=== PATIENT | female | born 2005 | race Caucasian/White ===

== ENCOUNTER 2024-05-10 17:40 | Emergency (ER) | payer MEDICAID ==
[~2024-05-10] VITALS: Ht 162.6 cm; Wt 71.7 kg
[~2024-05-10 17:40] MED LIST: AZIT200S47 PO; AZIT250T PO; CIPR7.5D2 RIGHT EAR; CLAR250S PO; IBUP-2766 PO
[2024-05-10 18:10] LABS: STREP A SCREEN POSITIVE (Neg)
[2024-05-10] MEDS ORDERED: LIDO20SO16 PO (18:34)
[2024-05-10] MEDS ORDERED: CLIN-233 PO (18:34)
[2024-05-10 18:53] VITALS: BP 116/76; PULSE 107; RESP 16; TEMP 99; O2SAT 98
[2024-05-10] MEDS ORDERED: CLIN300C54 PO (18:53)
== END 2024-05-10 18:54 | disposition home or self-care (01) ==
LOC: ER 17:40
DX: J02.0 Streptococcal pharyngitis (principal); Z88.0 Allergy status to penicillin; Z79.2 Long term (current) use of antibiotics; Z79.1 Long term (current) use of non-steroidal anti-inflammatories (NSAID)
CPT/HCPCS: 87880; 99283

== ENCOUNTER 2024-07-03 19:20 | Emergency (ER) | payer MEDICAID ==
[~2024-07-03] VITALS: Ht 162.6 cm; Wt 70.0 kg
[~2024-07-03 19:20] MED LIST changes: +CLIN-233 PO; +LIDO20SO16 PO
[2024-07-03 19:26] VITALS: TEMP 98
[2024-07-03 20:32] VITALS: BP 124/86; PULSE 99; RESP 18; O2SAT 98
== END 2024-07-03 20:34 | disposition home or self-care (01) ==
LOC: ER 19:20
DX: M79.641 Pain in right hand (principal); M25.531 Pain in right wrist; Z88.0 Allergy status to penicillin; Z79.2 Long term (current) use of antibiotics; Z79.1 Long term (current) use of non-steroidal anti-inflammatories (NSAID); Z79.899 Other long term (current) drug therapy
CPT/HCPCS: 29125; 73130; 99283

== ENCOUNTER 2024-07-09 00:05 | Emergency (ER) | payer MEDICAID ==
[~2024-07-09] VITALS: Ht 162.6 cm; Wt 69.7 kg
[2024-07-09 00:30] VITALS: BP 127/91; PULSE 99; RESP 14; TEMP 98.6; O2SAT 100
[2024-07-09 01:17] LABS: BASOPHILS % (AUTO) 0.4 % (0-1); EOSINOPHILS # (AUTO) 0.1 X10'3 (0-0.9); HEMATOCRIT 40.9 % (35.0-45.0); LYMPHOCYTES # (AUTO) 2.9 X10'3 (1.1-4.8); MEAN CORPUSCULAR HEMOGLOBIN 30.2 PG (27.0-31.0); MEAN CORPUSCULAR HGB CONC 34.1 g/dL (33.0-36.5); MEAN CORPUSCULAR VOLUME 88.5 FL (78-98); MEAN PLATELET VOLUME 9.2 FL (7.4-10.4); MONOCYTES # (AUTO) 0.6 X10'3 (0-0.9); MONOCYTES % (AUTO) 6.5 % (2-12); NEUTROPHILS # (AUTO) 5.1 X10'3 (1.8-7.7); NEUTROPHILS % (AUTO) 59.1 % (42-75); PLATELET COUNT 278 X10'3 (140-440); RED BLOOD COUNT 4.62 X10'6 (4.20-5.60); RED CELL DISTRIBUTION WIDTH 13.5 % (11.5-14.5); WHITE BLOOD COUNT 8.7 X10'3 (4.5-11.0)
[2024-07-09 01:48] LABS: ANION GAP 10 (8-16); BLOOD UREA NITROGEN 8 MG/DL (7-18); BUN/CREATININE RATIO 12.1 (10.0-20.0); CALCIUM 8.8 MG/DL (8.5-10.1); CHLORIDE 107 MMOL/L (99-107); CREATININE 0.66 MG/DL (0.40-0.90); GLUCOSE 94 MG/DL (70-104); POTASSIUM 3.7 MMOL/L (3.5-5.1); SODIUM 143 MMOL/L (135-145); TOTAL CARBON DIOXIDE 25.8 MMOL/L (24-32); eCRCL 117 ML/MIN; eGFR > 90 ML/MIN
[2024-07-09 02:13] LABS: BETA HCG,QUANTITATIVE < 1.0 mIU/ml
== END 2024-07-09 03:21 | disposition left against medical advice (07) ==
LOC: ER 00:05
DX: N93.9 Abnormal uterine and vaginal bleeding, unspecified (principal); R42 Dizziness and giddiness; R11.0 Nausea; H53.8 Other visual disturbances; Z88.0 Allergy status to penicillin; Z79.2 Long term (current) use of antibiotics; Z79.1 Long term (current) use of non-steroidal anti-inflammatories (NSAID); Z79.899 Other long term (current) drug therapy
CPT/HCPCS: 36415; 80048; 84702; 85025; 99283

== ENCOUNTER 2024-08-16 18:43 | Emergency (ER) | payer MEDICAID ==
[~2024-08-16] VITALS: Ht 162.6 cm; Wt 68.8 kg
[2024-08-16 19:01] VITALS: PULSE 117; RESP 14; TEMP 98; O2SAT 100
== END 2024-08-16 19:33 | disposition left against medical advice (07) ==
LOC: ER 18:44
DX: R07.0 Pain in throat (principal); H92.09 Otalgia, unspecified ear; Z53.21 Procedure and treatment not carried out due to patient leaving prior to being seen by health care provider; Z88.0 Allergy status to penicillin